=== PATIENT | male | born 1975 | race Caucasian/White ===

== ENCOUNTER → 2016-09-30 | Outpatient (CLI) | payer BC ==
--- NOTE | 2016-09-30 16:58 | DIAGNOSTIC IMAGING REPORT ---
CERVICAL SPINE 6 VIEWS CLINICAL HISTORY: Left-sided cervical radiculopathy at C6. FINDINGS: AP, lateral, bilateral oblique, swimmer's, and odontoid views of the cervical spine are obtained. No prior studies are available for comparison at the time of dictation. The skeletal structures are well mineralized. There is no radiographic evidence of fracture or subluxation. The odontoid process and lateral masses appear intact on the open mouth view. The spinolaminar line is preserved. Vertebral body height and alignment are maintained. There is straightening of the cervical lordosis. The spinous processes appear intact. There is mild degenerative disc space narrowing at C5-C6. A posterior disc complex at this level may contribute to mild acquired compromise of the central canal. The remaining intervertebral disc spaces are normal. No significant neural foraminal stenosis is suggested on the oblique views. The prevertebral soft tissues are within normal limits. Visualized apical lung parenchyma appears clear. IMPRESSION: 1. No acute bony abnormality is seen involving the cervical spine. 2. Mild spondylotic change as above. This is greatest at C5-C6 where a small posterior disc osteophyte complex likely contributes to mild acquired compromise of the central canal. See above. Electronically signed by: Elmer Paris M.D. 09/30/2016 4:56 PM Dictated Date/Time: 09/30/2016 4:54 PM
== END | disposition home or self-care (01) ==
LOC: C.RDSM 16:18
PROVIDERS: ATTEND Family Medicine
DX: M50.122 Cervical disc disorder at C5-C6 level with radiculopathy (principal)